=== PATIENT | male | born 1955 | race Caucasian/White ===

== ENCOUNTER 2018-03-25 11:03 | Emergency (ER) | payer OTHER ==
[2018-03-25 11:39] LABS: ABSOLUTE BASOPHIL COUNT 0 /CUMM (0.0-0.2); ABSOLUTE EOSINOPHIL COUNT 0.1 /CUMM (0.0-0.7); ABSOLUTE GRANULOCYTE CT 7.7 /CUMM (1.4-6.5); ABSOLUTE LYMPH COUNT 1.3 /CUMM (1.2-3.4); BASOPHIL % 0.2 % (0.0-2.0); GRANULOCYTE % 76.2 % (42.2-75.2); HEMATOCRIT 55.8 % (42-52); MEAN CORPUSCULAR HGB 28.6 PG (27.0-31.0); MEAN CORPUSCULAR HGB CONC 33.5 G/DL (33.0-37.0); MEAN CORPUSCULAR VOLUME 85.6 FL (80.0-94.0); MEAN PLATELET VOLUME 8.6 FL (7.4-10.4); PLATELET COUNT 261 /CUMM (130-400); RBC DISTRIBUTION WIDTH 13.8 % (11.5-14.5); RED BLOOD CELL CT 6.52 /CUMM (4.70-6.10); WHITE BLOOD CELL COUNT 10.2 /CUMM (4.8-10.8)
--- NOTE | 2018-03-25 11:56 | RADIOLOGY REPORT ---
EXAMINATION: XR CHEST CLINICAL INFORMATION: Hypertensive urgency. Presumptive diagnosis of pneumonia, CHF. COMPARISON: Chest x-ray dated 07/19/2012. TECHNIQUE: 2 views of the chest were obtained. FINDINGS: The cardiomediastinal silhouette is within normal limits in size. Lungs bilaterally are symmetrically expanded and clear. No focal consolidation, effusion or pneumothorax is seen. Incidental note is made of azygos lobe fissure in the right lung apex. Multilevel mild vertebral spondylosis is seen in the thoracolumbar spine. IMPRESSION: No acute cardiopulmonary process seen. Specifically, no evidence of pneumonia or CHF.
--- NOTE | 2018-03-25 14:36 | ED GENERAL ADULT ---
History of Present Illness General Chief Complaint: General Adult Stated Complaint: SENT BY MD FOR ELEVATED BP Source: patient Exam Limitations: no limitations Allergies Coded Allergies: NO KNOWN ALLERGIES (05/29/11) Reconcile Medications Aspirin (Aspirin*) 81 MG TAB.CHEW 1 TAB PO DAILY HEART HEALTH (Reported) Escitalopram Oxalate (Lexapro) 20 MG TABLET 1 TAB PO DAILY HEART (Reported) Ezetimibe/Simvastatin (Vytorin 10-10 MG Tablet) 10 MG-10 MG TABLET 1 TAB PO QPM CHOLESTEROL (Reported) Insulin Glargine,Hum.rec.anlog (Lantus Solostar) 100 UNIT/ML (3 ML) INSULN.PEN 20 UNIT SC QPM DIABETES (Reported) Levothyroxine Sodium 50 MCG TABLET 1 TAB PO DAILY AC THYROID (Reported) Linagliptin (Tradjenta) 5 MG TABLET 1 TAB PO DAILY DIABETES (Reported) Losartan (Cozaar) 100 MG TABLET 1 TAB PO DAILY HEART (Reported) Metformin HCl 500 MG TABLET 2 TAB PO BID DIABETES (Reported) Methylcellulose (Fiber) 500 MG TABLET 1 TAB PO DAILY GI (Reported) Metoprolol Succ XL (Toprol XL) 100 MG TAB.ER.24H 1 TAB PO QPM HEART (Reported ) Multivitamin (Daily Multiple Vitamin) 1 EACH TABLET 1 TAB PO DAILY VITAMIN SUPPORT (Reported) Testosterone (Androgel) 50 MG/5 GRAM (1 %) GEL.PACKET 2 PAC TOP DAILY HORMONE (Reported) Triage Note: PT TO ED WITH C/O PERSISTENT ELEVATED BP. HAD METOPROLOL INCREASED YESTERDAY. COMPLIANT WITH BP MEDS. SAW MD HATCH YESTERDAY. BP 197/88 IN TRIAGE. REPORTS HEADACHE. REPORTS BLURRY VISION, HOWEVER HAD EYE INJECTIONS IN THE LAST WEEK FOR CHRONIC EYE ISSUES. Triage Nurses Notes Reviewed? yes Onset: Gradual Duration: day(s): Timing: recent history HPI: 03/25/18 3 PM 62-year-old male presents to the emergency department complaining of asymptomatic high blood pressure. The patient saw his primary care doctor and his meds were increased and now he's having ongoing elevations in his blood pressure. He denies chest pain shortness of breath or fever. He does admit to an intermittent headache over the past several days. His blood pressure readings were reviewed with his , and he sat elevations as high as 184/103 (Florentin Contreras DO) Vital Signs & Intake/Output Vital Signs & Intake/Output Vital Signs Date Time Temp Pulse Resp B/P B/P Pulse O2 O2 Flow FiO2 Mean Ox Delivery Rate 03/25 2055 70 165/86 03/259 69 187/95 03/25 2022 99.0 65 17 187/95 96 Room Air 03/25 1955 66 180/103 03/25 1941 66 180/103 03/25 1800 64 162/86 03/25 1705 186/88 03/25 1549 66 18 172/102 03/25 1546 66 172/102 03/25 1529 98.3 64 18 171/95 95 Room Air 03/25 1427 98 Room Air 03/25 1409 187/90 03/25 1359 97.7 67 17 18790 98 Room Air 03/25 1110 97.8 70 16 197/88 97 Room Air (Kylee FLORES,Clint) Past History Travel History Traveled to [place] past 21 day No Medical History Any Pertinent Medical History? 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 No (Florentin Contreras DO) Review of Systems Review of Systems Constitutional: Denies: fever. EENTM: Denies: visual changes. Respiratory: Denies: short of breath. Cardiovascular: Denies: chest pain. GI: Denies: abdominal pain. Genitourinary: Reports: no symptoms. Musculoskeletal: Reports: no symptoms. Skin: Reports: no symptoms. Neurological/Psychological: Reports: headache. Hematologic/Endocrine: Reports: no symptoms. Immunologic/Allergic: Reports: no symptoms. (Florentin Contreras DO) Physical Exam Physical Exam General Appearance: well developed/nourished, alert, awake, mild distress Head: atraumatic, normal appearance Eyes: Bilateral: normal appearance, PERRL, EOMI. Ears, Nose, Throat: normal pharynx, normal ENT inspection Neck: normal inspection, supple Respiratory: normal breath sounds, chest non-tender, no respiratory distress Cardiovascular: regular rate/rhythm Peripheral Pulses: 4+ radial (R), 4+ radial (L) Gastrointestinal: soft, non-tender Back: normal range of motion Extremities: normal inspection, normal range of motion, no edema Neurologic/Psych: no motor/sensory deficits, awake, alert, oriented x 3 Skin: intact, normal color, warm/dry Core Measures ACS in differential dx? No CVA/TIA Diagnosis: No Sepsis Present: No Sepsis Focused Exam Completed? No (Florentin Contreras DO) Progress Differential Diagnoses I considered the following diagnoses in my evaluation of the patient: [ Hypertensive urgency, intracranial bleed] Initial ED EKG: NSR, LVH Prior EKG: unchanged (Florentin Contreras DO) Plan of Care: Orders Procedure Date/time Status Heart Healthy Diet 03/26 B Active FingerStick- Glucose 03/25 2055 Active ED Holding Orders 03/25 174 Active Admit to inpatient 03/25 174 Active Vital Signs 03/25 174 Active Code Status 03/25 174 Active Intake & Output 03/25 1426 Active URINALYSIS 03/25 1112 Complete TROPONIN LEVEL 03/25 1112 Complete COMPREHENSIVE METABOLIC PANEL 03/25 1112 Complete CBC WITHOUT DIFFERENTIAL 03/25 1112 Complete EKG 03/25 1112 Active Laboratory Tests 03/25/18 1657: Urine Color YEL, Urine Clarity CLEAR, Urine pH 6.5, Ur Specific [place] 1.010, Urine Protein 100 H, Urine Ketones NEG, Urine Nitrite NEG, Urine Bilirubin NEG, Urine Urobilinogen 0.2, Ur Leukocyte Esterase NEG, Ur Microscopic SEDIMENT EXAMINED, Urine RBC 1-3, Urine WBC RARE, Ur Epithelial Cells RARE, Urine Hemoglobin NEG, Urine Glucose NEG 03/25/18 1130: Anion Gap 11, Estimated GFR 47 L, BUN/Creatinine Ratio 17.3, Glucose 150 H, Calcium 9.6, Total Bilirubin 0.6, AST 33, ALT 27, Alkaline Phosphatase 96, Troponin I 0.03, Total Protein 7.2, Albumin 4.4, Globulin 2.8, Albumin/Globulin Ratio 1.6, CBC w Diff NO MAN DIFF REQ, RBC 6.52 H, MCV 85.6, MCH 28.6, MCHC 33.5, RDW 13.8, MPV 8.6, Gran % 76.2 H, Lymphocytes % 12.4 L, Monocytes % 10.2 H, Eosinophils % 1.0, Basophils % 0.2, Absolute Granulocytes 7.7 H, Absolute Lymphocytes 1.3, Absolute Monocytes 1.0 H, Absolute Eosinophils 0.1, Absolute Basophils 0 MRI results are shown below PATIENT: CRISTHIAN DUONG PRESENT AGE: 62 PATIENT ACCOUNT NO: [id number] : 53 LOCATION: [facility] ORDERING PHYSICIAN: Franklyn RICHARDSON SERVICE DATE: 03/25/18 EXAM TYPE: MRI - MRI-HEAD W & W/O LEONID Addendum: Findings in this report were discussed with Dr. Contreras at 5:08 PM on 03/25/2018. Addendum Signed by: Florentin Fowler MD 03/25/18 [id number] MR BRAIN WITHOUT AND WITH CONTRAST CLINICAL INFORMATION: Abnormal head CT. Headaches and hypertensive. COMPARISON: Head CT performed earlier the same day. TECHNIQUE: MRI of the brain was obtained using routine sequences before and after the intravenous administration of 8 mL of Gadavist. FINDINGS: There is a 5 mm focus of susceptibility signal along the lateral margin of the right lateral ventricular trigone that exhibits a punctate focus of enhancement. There are mild T2 signal changes surrounding this location making it difficult to exclude a small focus of acute hemorrhage. Alternatively this could reflect a cavernoma with adjacent gliosis. A repeat head CT in 12 to 24 hours would be helpful in excluding an evolving acute hemorrhage. There is no intraventricular hemorrhage. Correlating with the small subcentimeter focus of increased density within the inferior left frontal lobe white matter on the earlier head CT is susceptibility signal that exhibits peripheral intrinsic T1 shortening and no pathologic enhancement. There is no edema adjacent to this focus to suggest acute hemorrhage. This may reflect a small focus of chronic hemosiderin staining or a small cavernoma. There is no pathologic intracranial enhancement. There are T2 signal changes within the supratentorial white matter and central peter, most likely chronic microangiopathy. 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 There is no hydrocephalus, extra-axial surface collection, or herniation. The major flow voids at the skull base are preserved. There is no acute infarct on diffusion-weighted imaging. The midline structures are normal. The cerebellar tonsils are normally positioned. The cerebellum and brainstem are normal. The craniocervical junction is normal. Osseous marrow signal intensity is homogenous. The visualized soft tissues are unremarkable. There is a small retention cyst within the right maxillary sinus. IMPRESSION: - There is a 5 mm focus of susceptibility signal along the lateral margin of the right lateral ventricular trigone that exhibits a punctate focus of enhancement, previously hyperdense on CT. There are mild T2 signal changes surrounding this location making it difficult to exclude a small focus of acute hemorrhage. Alternatively this could reflect a cavernoma with adjacent gliosis. A repeat head CT in 12 to 24 hours would be helpful in excluding an evolving acute hemorrhage. There is no intraventricular hemorrhage and there is no associated mass effect. - There is an additional 5 mm focus of susceptibility signal within the inferior left frontal white matter at the site of the small focus of increased density appreciated on today's earlier head CT. Based on the MRI signal characteristics, a small focus of chronic hemosiderin staining or a small cavernoma is favored. 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 Covering provider has been paged with this finding at 5:05 PM on 03/25/2018. DICTATED BY: Florentin Fowler MD DATE/TIME DICTATED:03/25/181649 ELECTRICAL EQUIPMENT ASSEMBLER:KATHERINE DATE/TIME TRANSCRIBED:03/25/181649 CONFIDENTIAL, DO NOT COPY WITHOUT APPROPRIATE AUTHORIZATION. <Electronically signed in Other Vendor System> SIGNED BY: Florentin Fowler MD 03/25/18 8721 (Florentin Contreras DO) Comments: Family requests transfer to [facility] where daughter works. D/W Dr. Hughes accepts transfer. (Kylee FLORES,Clint) Departure Departure Condition: Stable Clinical Impression Primary Impression: Hypertensive urgency Secondary Impressions: Intracranial hemorrhage Referrals: Leanne FLORES,Gera Crabtree (PCP/Family) Departure Forms: Customer Survey General Discharge Information Admission Note Spoke With: Dieudonne FLORES,Fani Documentation of Exam: Documentation of any treatments & extenuating circumstances including Concerns Regarding Discharge (functional status, medication knowledge or non-compliance, living conditions, etc.) that warrant an admission rather than observation: [The patient has severe high blood pressure that's resulting in elevated kidney function and he has evidence of minimal intracranial bleeding. The case was discussed with the on-call neurosurgeon Dr. Hilton, the patient will require IV antihypertensive medications and neurological evaluations every 4-6 hours. He is being admitted to the ICU (Florentin Contreras DO) Departure Time of Disposition: 2048 Disposition: [facility] (ACUTE) (Kylee FLORES,Clint) Critical Care Note Critical Care Note Critical Care Time: 30-74 min (Florentin Contreras DO)
[2018-03-25] MEDS ORDERED: LEVOTHYROXINE50 MCG PO (14:37)
[2018-03-25] MEDS ORDERED: LEXAPRO20 M1 PO (14:38)
[2018-03-25] MEDS ORDERED: COZAAR100 M1 PO (14:38)
[2018-03-25] MEDS ORDERED: TRADJENTA5 M1 PO (14:38)
[2018-03-25] MEDS ORDERED: ASPIRIN81 M4 PO (14:39)
[2018-03-25] MEDS ORDERED: VYTORIN 10-101 EACH PO (14:39)
[2018-03-25] MEDS ORDERED: TOPROL XL100 M1 PO (14:39)
[2018-03-25] MEDS ORDERED: METFORMIN HCL500 M3 PO (14:40)
[2018-03-25] MEDS ORDERED: LANTUS SOL100 UNIT/1 SC (14:40)
[2018-03-25] MEDS ORDERED: FIBER500 MG PO (14:41)
[2018-03-25] MEDS ORDERED: DAILY MULTIPLE1 EACH PO (14:41)
[2018-03-25] MEDS ORDERED: ANDROGEL5 GM TOP (14:41)
--- NOTE | 2018-03-25 14:47 | CT SCAN REPORT ---
EXAMINATION: CT HEAD WITHOUT CONTRAST CLINICAL INFORMATION: Hypertensive urgency. Headaches. COMPARISON: None TECHNIQUE: Contiguous axial imaging was performed from the skull base to vertex without intravenous administration of contrast. DLP: 621.12 mGy-cm FINDINGS: Focal hyperdensity within the left inferior frontal lobe white matter. No surrounding mass effect. No extra-axial fluid collection. No evidence of acute territorial infarction. No evidence of mass lesion, mass effect or midline shift. The ventricles are symmetric in configuration and normal in size. The basal cisterns are patent. The calvarium is intact. Limited views of the paranasal sinuses are unremarkable. Mastoid air cells are well aerated and middle ear cavities are clear. Limited views of the orbits are unremarkable. IMPRESSION: Focal hyperdensity within the inferior white matter of the left frontal lobe could represent a small focus of intracranial hemorrhage versus calcification versus cavernoma. The finding is nonspecific on CT and MRI is recommended for further evaluation. This critical result was discussed with DEBRA Avelar at 1333 on 03/25/2018 and it was ascertained that the content and urgency of the report was understood at the time of direct communication.
--- NOTE | 2018-03-25 15:00 | CT SCAN REPORT ---
EXAMINATION: CT ABDOMEN AND PELVIS WITHOUT CONTRAST CLINICAL INFORMATION: Hypertensive urgency. AAA. Kidney stones. Acute onset severe low back pain. COMPARISON: Renal ultrasound 05/29/2011. TECHNIQUE: Multidetector volumetric imaging was performed from the superior aspect of the liver through the pubic symphysis. Sagittal and coronal reformatted images were obtained on the technologist's workstation. DLP: 368 mGy-cm FINDINGS: LUNG BASES: The visualized lung bases are unremarkable. LIVER, GALLBLADDER, AND BILIARY TREE: The liver is normal in size, shape, and attenuation. No focal hepatic lesion or biliary ductal dilatation is present. The gallbladder is unremarkable with no evidence of radiopaque gallstones, gallbladder wall thickening, or obvious pericholecystic inflammatory changes. PANCREAS: Unremarkable. SPLEEN: Unremarkable. ADRENAL GLANDS: Unremarkable. KIDNEYS AND URETERS: Left: Several hypodense lesions are seen in the left kidney compatible with cysts the largest exophytic from the medial interpolar region measuring 1.9 cm. Mild perinephric stranding is present. No hydronephrosis or calculi. Right: Large complex multilobulated cystic lesion arising exophytically from the upper pole and now measuring up to 7.9 cm, previously up to 4.8 cm on 05/29/2011. There are coarse calcification/septations within the lesion. An additional hypodense lesion is present in the inferior pole measuring up to 2.4 cm and most likely representing a cyst. No hydronephrosis or calculi. Mild perinephric stranding is present. BLADDER: Unremarkable. GASTROINTESTINAL TRACT: There is large amount of colonic stool. The small bowel appears normal. The appendix is not definitively identified. No inflammatory changes are seen in the right lower quadrant. No bowel obstruction. ABDOMINAL WALL: No ventral wall hernia. There is a fat-containing right inguinal hernia. LYMPH NODES: Normal. VASCULAR: Atheromatous changes are present in the abdominal aorta and its branch vessels. There is no aneurysm. No intramural hematoma is seen. PELVIC VISCERA: No pelvic mass. OSSEOUS STRUCTURES: Mild degenerative changes in the thoracolumbar spine. Grade 1 anterolisthesis of L4 on L5 related to advanced degenerative facet arthropathy. IMPRESSION: - No acute abnormality in the abdomen or pelvis. - Normal caliber abdominal aorta. No intramural hematoma identified. - Complex cystic lesion arising from the upper pole of the right kidney now measuring 7.9 cm, previously 4.8 cm with internal coarse calcification/septations. - Moderate amount of colonic stool.
--- NOTE | 2018-03-25 17:13 | MRI REPORT ---
MR BRAIN WITHOUT AND WITH CONTRAST CLINICAL INFORMATION: Abnormal head CT. Headaches and hypertensive. COMPARISON: Head CT performed earlier the same day. TECHNIQUE: MRI of the brain was obtained using routine sequences before and after the intravenous administration of 8 mL of Gadavist. FINDINGS: There is a 5 mm focus of susceptibility signal along the lateral margin of the right lateral ventricular trigone that exhibits a punctate focus of enhancement. There are mild T2 signal changes surrounding this location making it difficult to exclude a small focus of acute hemorrhage. Alternatively this could reflect a cavernoma with adjacent gliosis. A repeat head CT in 12 to 24 hours would be helpful in excluding an evolving acute hemorrhage. There is no intraventricular hemorrhage. Correlating with the small subcentimeter focus of increased density within the inferior left frontal lobe white matter on the earlier head CT is susceptibility signal that exhibits peripheral intrinsic T1 shortening and no pathologic enhancement. There is no edema adjacent to this focus to suggest acute hemorrhage. This may reflect a small focus of chronic hemosiderin staining or a small cavernoma. There is no pathologic intracranial enhancement. There are T2 signal changes within the supratentorial white matter and central peter, most likely chronic microangiopathy. 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 There is no hydrocephalus, extra-axial surface collection, or herniation. The major flow voids at the skull base are preserved. There is no acute infarct on diffusion-weighted imaging. The midline structures are normal. The cerebellar tonsils are normally positioned. The cerebellum and brainstem are normal. The craniocervical junction is normal. Osseous marrow signal intensity is homogenous. The visualized soft tissues are unremarkable. There is a small retention cyst within the right maxillary sinus. IMPRESSION: - There is a 5 mm focus of susceptibility signal along the lateral margin of the right lateral ventricular trigone that exhibits a punctate focus of enhancement, previously hyperdense on CT. There are mild T2 signal changes surrounding this location making it difficult to exclude a small focus of acute hemorrhage. Alternatively this could reflect a cavernoma with adjacent gliosis. A repeat head CT in 12 to 24 hours would be helpful in excluding an evolving acute hemorrhage. There is no intraventricular hemorrhage and there is no associated mass effect. - There is an additional 5 mm focus of susceptibility signal within the inferior left frontal white matter at the site of the small focus of increased density appreciated on today's earlier head CT. Based on the MRI signal characteristics, a small focus of chronic hemosiderin staining or a small cavernoma is favored. 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 Covering provider has been paged with this finding at 5:05 PM on 03/25/2018.
--- NOTE | 2018-03-25 18:33 | History & Physical ---
Fior Gustafson 03/25/18 1832: General Information and HPI Allergies/Medications Allergies: Coded Allergies: NO KNOWN ALLERGIES (05/29/11) Home Med list Aspirin (Aspirin*) 81 MG TAB.CHEW 1 TAB PO DAILY HEART HEALTH (Reported) Escitalopram Oxalate (Lexapro) 20 MG TABLET 1 TAB PO DAILY HEART (Reported) Ezetimibe/Simvastatin (Vytorin 10-10 MG Tablet) 10 MG-10 MG TABLET 1 TAB PO QPM CHOLESTEROL (Reported) Insulin Glargine,Hum.rec.anlog (Lantus Solostar) 100 UNIT/ML (3 ML) INSULN.PEN 20 UNIT SC QPM DIABETES (Reported) Levothyroxine Sodium 50 MCG TABLET 1 TAB PO DAILY AC THYROID (Reported) Linagliptin (Tradjenta) 5 MG TABLET 1 TAB PO DAILY DIABETES (Reported) Losartan (Cozaar) 100 MG TABLET 1 TAB PO DAILY HEART (Reported) Metformin HCl 500 MG TABLET 2 TAB PO BID DIABETES (Reported) Methylcellulose (Fiber) 500 MG TABLET 1 TAB PO DAILY GI (Reported) Metoprolol Succ XL (Toprol XL) 100 MG TAB.ER.24H 1 TAB PO QPM HEART (Reported ) Multivitamin (Daily Multiple Vitamin) 1 EACH TABLET 1 TAB PO DAILY VITAMIN SUPPORT (Reported) Testosterone (Androgel) 50 MG/5 GRAM (1 %) GEL.PACKET 2 PAC TOP DAILY HORMONE (Reported) Past History Travel History Traveled to [place] past 21 day No Medical History Neurological: NONE EENT: NONE Cardiovascular: hypertension Respiratory: NONE Gastrointestinal: NONE Hepatic: NONE Renal: NONE Musculoskeletal: NONE Psychiatric: NONE Endocrine: diabetes Blood Disorders: NONE Cancer(s): 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 Core Measures/Misc (03/29) Sepsis (View protocol) If YES complete Sepsis Event Note If YES complete Sepsis Event Note Gely Dominguez MD 03/25/18 1940: Core Measures/Misc (03/29) Sepsis (View protocol) If YES complete Sepsis Event Note If YES complete Sepsis Event Note Attending MD Review Statement Attending Statement Attending MD Statement: examined this patient, discuss w/resident/PA/STITCH MARKER, agreed w/resident/PA/STITCH MARKER, discussed with family, reviewed images, amended to note Attending Assessment/Plan: I have personally seen and examined the patient and agree with the resident's assessment and plan as detailed above. I have discussed the issues with the resident in detail. Recommendations have been made for overnight management. At this time, after discussing the medical issues with the patient and his , they would like to wait for their daughter to arrive in the emergency department and consider transfer to [facility] which is their preference. We will accept the patient into the critical care unit for further treatment and monitoring, should they decide to continue their care here.
[2018-03-25 20:55] VITALS: BP 165/86
== END 2018-03-25 21:04 | disposition short-term general hospital (02) ==
LOC: ERH 11:03 → ERHI 17:42 → ERH 17:42 → ERHI 21:04
PROVIDERS: Physician Assistant Medical
DX: I16.0 Hypertensive urgency (principal); I62.9 Nontraumatic intracranial hemorrhage, unspecified; Z72.0 Tobacco use; E11.9 Type 2 diabetes mellitus without complications; Z79.82 Long term (current) use of aspirin; Z79.84 Long term (current) use of oral hypoglycemic drugs
CPT/HCPCS: 70552; ERO; 70553; 71046; 74176; 81001; 93005; 93010; 96374; A9579; J0131; J0360